=== PATIENT | female | born 1975 | race Caucasian/White ===

== ENCOUNTER 2019-05-19 16:53 | Inpatient (IN) ==
[2019-05-19 17:47] LABS: INFLUENZA A NEGATIVE (NEGATIVE); INFLUENZA B NEGATIVE (NEGATIVE)
--- NOTE | 2019-05-19 18:11 | Diag Imaging Result Doc PS360 ---
EXAM: CHEST-2 VIEWS 05/19/2019 HISTORY: cough TECHNIQUE: Two views of the chest COMMENT: The inspiration is less optimal than on 09/14/2018. Otherwise considering differences in technique there has been no significant change. IMPRESSION: No acute disease. Electronically signed by Fabrice Mccurdy 05/19/2019 6:09 PM
[2019-05-19] MEDS ORDERED: DUONEB (A & A) INH ONE ×3 (19:00→19:27)
[2019-05-19] MEDS ORDERED: DECADRON IM ONE (19:00)
--- NOTE | 2019-05-19 19:00 | PROVIDER DOCUMENTATION ---
HPI-General Adult - General Chief Complaint: Flu Symptoms Stated Complaint: FLU SX - SENT BY [facility] Time Seen by Provider: 05/19/19 17:13 Source: patient Allergies/Adverse Reactions: Patient Allergies Allergy/AdvReac Type Severity Reaction Status Date / Time Penicillins Allergy Intermediate HIVES Verified 12/22/16 02:21 Sulfa (Sulfonamide Allergy Intermediate HIVES Verified 12/22/16 02:21 Antibiotics) Home Medications: Home Medication List Medication Instructions Recorded Confirmed Last Taken Type Clonazepam [Klonopin] 1 mg PO DAILY 04/20/16 12/22/16 12/21/16 History Carvedilol [Coreg] 3.125 mg PO Q12HR 04/27/16 12/22/16 1 Week Ago History ~12/15/16 Ziprasidone [Geodon] 120 mg PO QHS 04/27/16 12/22/16 12/21/16 History Divalproex [Depakote] 500 mg PO DAILY 12/22/16 12/22/16 12/21/16 History Hydrocodone/Acetaminophen [[place] 1 each PO Q6H PRN PRN 12/22/16 12/22/16 12/22/16 01:30 History 10-325 Tablet] Prednisone 10 mg PO DAILY #21 tablet 12/22/16 Unknown Rx Prozerin 10 mg PO HS 12/22/16 12/21/16 History Venlafaxine E.r. [Effexor Xr] 225 mg PO DAILY 12/22/16 12/22/16 12/21/16 History Promethazine [Phenergan] 1 - 2 tab PO Q6H PRN PRN #18 tab 06/30/17 Unknown Rx Ondansetron [Zofran Odt] 8 mg PO BID PRN #6 tab.rapdis 11/29/18 Unknown Rx Polyethylene Glycol 3350 [Miralax] 17 gm PO DAILY #20 powd.pack 11/29/18 Unknown Rx Azithromycin 500 mg PO DAILY 5 Days #6 tab 05/19/19 Unknown Rx Prednisone 20 mg PO BID 5 Days #10 tab 05/19/19 Unknown Rx - History of Present Illness -Gen Adult Nature of Presenting Problems: Patient is a 43 yowf who complains of sneezing, productive cough with green sputum, wheezing, and fever (temp max 101) x 3 days. Hx of asthma. Denies any other complaints. Pt audibly wheezing during exam. Review of Systems - Adult - REVIEW OF SYSTEMS - ADULT Constitutional: reports: see HPI, fever Eyes: reports: no symptoms reported Ears, Nose, Mouth & Throat: reports: no symptoms reported Cardiovascular: reports: no symptoms reported Respiratory: reports: see HPI Gastrointestinal: reports: no symptoms reported Genitourinary: reports: no symptoms reported Musculoskeletal: reports: no symptoms reported Integumentary: reports: no symptoms reported Neurological: reports: no symptoms reported Psychiatric: reports: no symptoms reported Endocrine: reports: no symptoms reported Hematologic/Lymphatic: reports: no symptoms reported Allergic/Immunologic: reports: no symptoms reported All Other Systems: Reviewed and Negative Past History - Adult - PAST MEDICAL HISTORY-ADULT Review of Records: reports: Nursing Assessment Review, Medications Reviewed Major Childhood Illnesses: reports: denies history Cardiovascular: reports: HTN, hyperlipidemia, other (psvt) Respiratory: reports: asthma Gastrointestinal: reports: denies history Obstetrical/Gynecological: reports: denies history Genitourinary: reports: denies history Musculoskeletal: reports: denies history Neurological: reports: headaches/migraines Psychiatric: reports: anxiety, bipolar, ptsd, schizophrenia Endocrine/Immune: reports: denies history Other Conditions: reports: denies history - PRIOR SURGERIES/PROCEDURES Surgical/Procedure History: reports: hysterectomy, , tonsillectomy, breast, other - IMMUNIZATION STATUS Childhood Immunizations: See Nurse Assessment Flu Vaccine: See Nurse Assessment - FAMILY HISTORY Family History: reviewed, not pertinent - SOCIAL HISTORY Smoking: cigarettes, greater than 1 pack/day Physical Exam-General - PHYSICAL EXAM-ADULT Initial Vital Signs Reviewed: Yes - CONSTITUTIONAL General Appearance: alert, mild distress. negative: lethargic, slow to respond - EYES Eyes: PERRL/EOMI, pink conjunctivae. negative: sclera injected, scleral icterus, sunken eyes - HEAD, EARS, NOSE, MOUTH & THROAT HENMT: normocephalic/atraumatic, moist mucous membranes, normal ENT inspection, TMs normal, pharynx normal - NECK Neck: full range of motion, supple, normal inspection - RESPIRATORY Respiratory: chest non-tender, respiratory distress (mild), rhonchi (Diffuse), wheezing (audible and diffuse expiratory) - CARDIOVASCULAR Cardiovascular: normal peripheral pulses, regular rate, rhythm, no edema, no gallop, no murmur - MUSCULOSKELETAL Back Exam: normal inspection Extremity: normal range of motion, non-tender, normal gait, normal inspection - SKIN Integumentary: normal color, warm/dry. negative: diaphoresis, jaundice, mottled, pallor - NEUROLOGIC Neurologic: grossly normal, no motor/sensory deficits - PSYCHIATRIC Psych/Mental Status: normal mood/affect, normal thought content, normal thought process, oriented x 3 Progress - PLAN OF CARE/RESULTS Progress/Plan/Lab Results: Vital Signs - 8 hr 05/19/19 16:59 Pulse Rate 73 Respiratory Rate 18 Blood Pressure 134/98 O2 Sat by Pulse Oximetry 95 Laboratory Results - last 24 hr 05/19/19 05/19/19 17:06 17:11 Influenza A (Rapid) NEGATIVE Influenza B (Rapid) NEGATIVE Group A Strep Rapid NEGATIVE Orders Category Date Time Status CHEST-2 VIEWS [RAD] Stat Exams 05/19/19 17:[address] Stat Lab 05/19/19 17:06 Completed Flu [INFLUENZA SCREEN PL] Stat Lab 05/19/19 17:11 Completed 1930- O2 sat 85% on room air when RT went to administer breathing tx- additional orders entered. Result Diagrams: 05/19/19 20:38 05/19/19 20:38 - REASSESSMENT Reassessment #1 Time Reassessed: 21:59 Status: unchanged (O2 sat 89-90% on 2L O2 after 3 breathing treatments. Pt states she does not feel any better. Pt in agreement with plan to admit. Admitting HPS paged.) Reassessment #2 Time Reassessed: 22:06 Status: other (Verified with pt that she can take Rocephin safely with no allergic reaction despite pcn allergy.) - XRAY 1 XRAY Study: Chest ([facility] - [address], [address], [place] [address] [facility] - [address] [place] [address] Department of Imaging Patient: YOLANDA WARNER Date: 05/19/19MR#: [id number] : 1975ADM Status: REG [facility]#: [id number] Age/Sex: 43/FRoom/Bed: Loc: P.ED Ordering Physician: Anthony Fitzgerald Family Physician: Irene Hooker Reason for Procedure: cough ___ Signed EXAM: CHEST-2 VIEWS 05/19/2019 HISTORY: cough TECHNIQUE: Two views of the chest COMMENT: The inspiration is less optimal than on 09/14/2018. Otherwise considering differences in technique there has been no significant change. IMPRESSION: No acute disease. Electronically signed by Fabrice Mccurdy 05/19/2019 6:09 PM 05/19/191808 Interpreting Physician: Fabrice Mccurdy MD Dictated Date/Time: 05/19/191807 cc: Anthony Fitzgerald; Irene Hooker) - CONSULTS/PCP/HOSPITALIST Notification #1 *Consult/PCP/Hospitalist*: Dr. Eldridge Time Discussed: 22:03 Reason/Comments: admission-asthma exacerbation Consult Disposition: Admit (Requests IV Rocephin and Solu-Medrol 60 mg Q8h.) Departure - Departure Date of Disposition Decision: 05/19/19 Time of Disposition Decision: 18:57 DIAGNOSIS: Upper respiratory infection Qualifiers: URI type: unspecified URI Qualified Code(s): J06.9 - Acute upper respiratory infection, unspecified Disposition: HOME 01 Certified Medical Emergency: Emergent Condition: Stable Additional Instructions: ED Follow Up Instructions: Cool mist vaporizer in bedroom. Plenty of fluids and rest. Begin taking steroids tomorrow since we gave you a steroid shot here. You have been treated by a care provider in the Emergency Department. These instructions are being provided to you so you can have an understanding of how to care for yourself upon discharge. Upon discharge from the Emergency Department, you are responsible for making arrangements for follow-up care by a physician of your choice. Take all prescribed medications as directed. Return to the Emergency Department immediately for any new or worsening symptoms. You may call the Physician Referral phone number at [phone] to obtain a list of Physicians who are taking new patients. Prescriptions: Azithromycin 500 mg PO DAILY 5 Days #6 tab Prednisone 20 mg PO BID 5 Days #10 tab Referrals and Follow-Ups: Irene Hooker [Primary Care Provider] - Call for Appoint. 1-2days Work Excuses: Return to School/Parent Work Discharge Education: Upper Respiratory Infection, Adult, [id number] - Critical Care Note This patient required my direct & personal management of CC.: No Attestation - Physician/ SIMON Attestation Patient care was provided by Advanced Practice Provider:: Yes Advanced Practice Provider:: Anthony Fitzgerald Advanced Practice Provider documentation review:: The Mid-level provider documentation, treatment plan and medical decision making was reviewed by the physician who agrees with all treatment and medical decision making by the MLP. The physician spent face to face time with patient:: No Advanced Practice Provider documentation review:: Supervising physician onsite and consulted in the evaluation and care of this patient. The physician did not have a face to face encounter with the patient.
[2019-05-19 19:27] LABS: BLOOD TYPE ARTERIAL; HCO3-(ACT) 32.7 mmoll (20.0-26.0); METHB 0.8 % (0.0-1.5); SAMPLE BLOOD; SAO2 85.4 % (95.0-100.0); THB 16.5 g/dL (11.5-17.4); pH(98.6) 7.45 (7.35-7.45)
[2019-05-19 19:43] LABS: PCO2(98.6) 54 mmHg (35-45)
[2019-05-19 19:44] LABS: ALLEN TEST YES; MODALITY ROOM AIR; O2HB 73.5 % (95.0-99.0); PO2(98.6) 38 mmHg (60-100)
[2019-05-19 20:45] LABS: BASO# 0.03 X1000 (0.0-0.2); BASO% 0.3 % (0.0-0.8); EOS# 0.04 X1000 (0.0-0.7); EOS% 0.4 % (0.0-10.0); HEMATOCRIT 50.3 % (37.0-47.0); HEMOGLOBIN 16.1 g/dL (12.0-16.0); IMM GRAN# 0.03 X1000 (0.0-0.04); IMM GRAN% 0.3 % (0.0-0.5); LYMPH# 2.76 X1000 (1.2-3.4); LYMPH% 30.2 % (20.5-51.1); MCH 29.6 PG (27-31); MCV 92.5 FL (81-99); MONO# 0.98 X1000 (0.11-0.59); MONO% 10.7 % (1.7-9.3); MPV 11.5 FL (7.4-10.4); NEUT# 5.31 X1000 (1.4-6.5); NEUT% 58.1 % (42.2-75.2); PLT 170 X1000 (130-400); RBC 5.44 XMIL (4.2-5.4); RDW 15.6 % (11.5-14.5); WBC 9.15 X1000 (4.8-10.8)
[2019-05-19] MEDS ORDERED: NS 1,000 ML IV ONE ×2 (20:49→22:07)
[2019-05-19 21:07] LABS: AGAP 12; ALBUMIN 3.8 g/dL (3.5-5.0); ALKALINE PHOSPHATASE 92 U/L (32-104); BUN 15 mg/dL (8-22); CHLORIDE 92 mmol/L (98-107); COSMO 281; CREATININE 0.7 mg/dL (0.5-0.9); ESTIMATED GFR > 60; GLUCOSE 104 mg/dL (70-104); GOT 17 U/L (10-30); GPT 11 U/L (10-36); POTASSIUM 3.7 mmol/L (3.5-5.1); SODIUM 140 mmol/L (136-145); TCO2 36 mmol/L (25-35); TOTAL PROTEIN 7.2 g/dL (6.3-8.3)
[2019-05-19] MEDS ORDERED: ROCEPHIN 1 GM in NS 50 ML IV ONE (22:03)
[2019-05-19] MEDS ORDERED: ZOFRAN ODT PO PRN (22:07)
[2019-05-19] MEDS: ROCEPHIN 1 GM in NS 50 ML IV SCH (22:15)
[2019-05-19] MEDS ORDERED: NICODERM PATCH TD ONE (22:33)
[2019-05-19] MEDS: DUONEB (A & A) INH SCH (23:14)
[2019-05-19] MEDS: SOLU-MEDROL IV SCH (23:49)
[2019-05-20] MEDS: GEODON PO SCH ×4 (01:56→22:39)
[2019-05-20] MEDS: KLONOPIN PO SCH ×4 (01:58→18:11)
[2019-05-20] MEDS: DDAVP PO SCH ×2 (01:59→22:38)
[2019-05-20] MEDS: FLEXERIL PO SCH ×2 (02:00→22:39)
[2019-05-20] MEDS: DEPAKOTE PO SCH ×2 (02:00→22:38)
[2019-05-20] MEDS: DUONEB (A & A) INH SCH ×6 (03:22→23:17)
[2019-05-20] MEDS: TYLENOL PO PRN ×2 (04:46→14:10)
[2019-05-20] MEDS: SOLU-MEDROL IV SCH ×3 (06:22→22:37)
[2019-05-20] MEDS: ROBITUSSIN-DM PO PRN (14:20)
[2019-05-20] MEDS: ZITHROMAX PO SCH (18:27)
--- NOTE | 2019-05-20 19:03 | HISTORY AND PHYSICAL ---
CHIEF COMPLAINT: Generalized body aches, chest congestion, sore throat, and cough. HISTORY OF PRESENT ILLNESS: This is a 43-year-old female with a prior history of PSVT, hyperlipidemia, hypertension, seizures, and bipolar disorder. She presents to the emergency room complaining of cough, congestion, generalized body aches for 3 days prior. She was evaluated at a walk-in clinic and sent to the emergency room for further evaluation. At outlying clinic, they had difficulty getting her O2 saturation as she did have on fake nails. Therefore, they sent her to the emergency room for further evaluation. This is according to the chart. The patient states that she has had 3 days of fever with a T-max of 101 degrees, with wheezing, green sputum, generalized body aches. She had a room air saturation of 86 percent. ABGs showed a pCO2 of 54, pO2 of 38. Saturations have increased to 92 to 94 percent on 2 L nasal cannula. PAST MEDICAL HISTORY: 1. Asthma. 2. PSVT. 3. Hyperlipidemia. 4. Hypertension. 5. Seizure disorder. 6. History of brain injury. 7. Chronic neck pain. 8. Bipolar disorder. PAST SURGICAL HISTORY: 1. . 2. Hysterectomy. 3. Tonsillectomy. 4. 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 5. Breast reduction. SOCIAL HISTORY: She smokes 2 packs a day. She denies alcohol or illicit drug use. ALLERGIES: Penicillin and sulfa, which cause hives. HOME MEDICATIONS: A list will be obtained by the nursing staff and once verified, will review and restart as appropriate. REVIEW OF SYSTEMS: Discussed with the patient with pertinent positives as stated in the HPI. She denied any syncope or dizziness, any chest pain or palpitations, any nausea, vomiting, diarrhea, constipation, black or bloody vomitus or stools, hematuria, dysuria, frequency, urgency. PHYSICAL EXAMINATION: GENERAL: This is a 43-year-old female who is lying on the bed on the medical-surgical floor in no distress. VITAL SIGNS: Blood pressure is 144/90 with heart rate of 80, respirations are 20, temperature is 98.4 degrees oral, with O2 saturations 96 percent on 2 L nasal cannula. EYES: Pupils equal, round, react to light. EOMs are intact. Sclerae anicteric. HEAD: Normocephalic, atraumatic. ENT: Mucous membranes are moist. NECK: Supple with trachea midline. CARDIOVASCULAR: Regular rate and rhythm. S1 and S2 are appreciated. She has no lower extremity edema. Peripheral pulses are palpable x4 extremities. PULMONARY: Breath sounds are diminished throughout with prolonged expiration. She does have expiratory wheezes scattered. Chest rises and falls symmetrically with respiration. GASTROINTESTINAL: Abdomen is soft, nontender, and nondistended with bowel sounds in all 4 quadrants. NEUROLOGIC: She is alert and oriented x3. SKIN: Warm and dry. LABS: WBC is 9, hemoglobin 16.1, hematocrit 50.3, and platelets of 170,000. Sodium 140, potassium 3.7, BUN 15, creatinine 0.7 with a glucose of 104. PH 7.45 with pCO2 54, pO2 38, and bicarb 32.7. This is on room air. Influenza A and B and rapid strep are negative. Blood cultures x2 are pending. Throat culture is pending. Chest x-ray revealed no acute disease. ASSESSMENT AND PLAN: 1. Acute hypoxemic respiratory failure. 2. Asthma exacerbation. 3. Upper respiratory infection, with cultures pending. 4. History of bipolar disorder. 5. History of seizures. 6. Hypertension. PLAN: 1. The patient has been admitted to the medical-surgical floor and she is placed on telemetry which we will continue. 2. We will continue with supplemental oxygen as needed with DuoNebs q.4 hours with steroids to taper. 3. We will review her home medications and continue these as appropriate. 4. We will continue Rocephin and Zithromax, and further antibiotics will be culture driven. 5. We will add incentive spirometer Acapella. 6. Further treatments pending hospital course. Dictated by CHADWICK Kenyon for Dion Eldridge MD cc: CHADWICK Kenyon MD
[2019-05-20] MEDS: ROCEPHIN 1 GM in NS 50 ML IV SCH (22:37)
[2019-05-20] MEDS: NICODERM PATCH TD SCH (23:45)
[2019-05-21] MEDS ORDERED: VANCOMYCIN 1 GM/NS 1 GM/250 ML IVPB IV SCH (00:15)
--- NOTE | 2019-05-21 01:23 | HISTORY AND PHYSICAL ---
ADDENDUM: Patient seen and examined by myself. Full note dictated and discussed with nurse practitioner. Patient presented to the hospital with increased cough, congestion, shortness of breath, increased wheezing. States she has not been in the hospital before for her asthma. Symptoms have been going on for 3 to 4 days. She has got a mild fever of 101, greenish sputum and wheezing. PHYSICAL EXAMINATION: GENERAL: On exam, patient is very pleasant although she is in mild respiratory distress. HEENT: Normocephalic. NECK: Supple. CARDIOVASCULAR: Regular rate. CHEST: Decreased but equal. Positive wheezing. Poor air movement. ABDOMEN: Soft. EXTREMITIES: Moves all extremities. ASSESSMENT: Chronic obstructive pulmonary disease with exacerbation. PLAN: I am going to admit to the hospital, place on steroids, oxygen, breathing treatments. Discussed with patient the importance of stopping smoking currently. cc: Dion Eldridge MD
[2019-05-21] MEDS: DUONEB (A & A) INH SCH ×6 (03:19→23:26)
[2019-05-21] MEDS: TYLENOL PO PRN ×2 (06:13→14:36)
[2019-05-21] MEDS: SOLU-MEDROL IV SCH ×3 (06:13→23:00)
[2019-05-21] MEDS: GEODON PO SCH ×2 (09:41→23:03)
[2019-05-21] MEDS: KLONOPIN PO SCH ×3 (09:41→17:02)
[2019-05-21] MEDS: NICODERM PATCH TD SCH (09:41)
[2019-05-21] MEDS: ZITHROMAX PO SCH (09:41)
--- NOTE | 2019-05-21 15:49 | PROGRESS NOTE ---
DATE: 05/21/2019 SUBJECTIVE: Patient notes that she is feeling a little bit better less cough, less congestion, less shortness of breath. Denies any fevers or chills. PHYSICAL: Vital signs reviewed. She is awake, alert. She is in mild current respiratory distress which is improved from yesterday's exam.HEENT: Normocephalic. Neck: Supple. CV: Regular rate. Chest: Minimal wheezing, much improved air movement. Abdomen: Soft, nondistended, nontender. Extremities: Moves all extremities. Neuro: No changes. ASSESSMENT: 1. Asthma with exacerbation. 2. Acute hypoxic respiratory failure. 3. Bipolar. 4. History of seizures. 5. Hypertension. PLAN: We are going continue patient in hospital, continue Solu-Medrol although decrease to 40 IV q.8, continue Rocephin and azithromycin. We will stop vancomycin as her blood culture was a contaminant. Hopefully home over the next 1 or 2 days. cc: Dion Eldridge MD
[2019-05-21] MEDS: FLEXERIL PO SCH (23:03)
[2019-05-21] MEDS: DEPAKOTE PO SCH (23:03)
[2019-05-21] MEDS: DDAVP PO SCH (23:03)
[2019-05-21] MEDS: ROCEPHIN 1 GM in NS 50 ML IV SCH (23:04)
[2019-05-21] MEDS: ROBITUSSIN-DM PO PRN (23:06)
[2019-05-22] MEDS: NICODERM PATCH TD SCH ×2 (02:47→09:56)
[2019-05-22] MEDS: DUONEB (A & A) INH SCH ×3 (03:26→10:53)
[2019-05-22 05:31] VITALS: BP 119/73
[2019-05-22] MEDS: SOLU-MEDROL IV SCH (06:36)
[2019-05-22] MEDS: ZITHROMAX PO SCH (09:56)
[2019-05-22] MEDS: GEODON PO SCH (09:56)
[2019-05-22] MEDS: KLONOPIN PO SCH (09:56)
[2019-05-22] MEDS ORDERED: PNEUMOVAX 23 IM ONE (12:15)
--- NOTE | 2019-05-22 18:41 | DISCHARGE SUMMARY ---
ADMISSION DATE: 05/19/2019 DISCHARGE DATE: 05/22/2019 DISCHARGE DIAGNOSES: 1. Asthma with exacerbation. 2. Hyperlipidemia. 3. Hypertension. 4. History of seizure disorder. 5. History of brain injury. 6. Chronic neck pain. 7. Bipolar disorder. CONSULTATIONS: None. PROCEDURES: None. BRIEF HOSPITAL COURSE: The patient is a very pleasant 43-year-old female who presented to the hospital with increased cough, congestion, increased work of breathing, shortness of breath, dyspnea on exertion. She was wheezing. She continues to smoke approximately 2 packs a day. We did discuss with her on multiple occasions the perils of smoking as well as reasons and ways to stop. The patient states that she is not currently ready to stop. DISPOSITION: On discharge, patient is awake, alert. She states that she is back to her normal self. She is no longer wheezing. States that her lung exam is back at her baseline, and she would like to go home. We are going to discharge the patient home on antibiotics, Medrol Dosepak, and inhaler. Discussed again the importance of stopping smoking. She will follow up outpatient with treatment facility of choice. cc: Dion Eldridge MD
== END 2019-05-22 12:27 | disposition home or self-care (01) | DRG 203 ==
LOC: P.ED 16:53 → P.MEDSURG 22:30
PROVIDERS: ATTEND Family Medicine